=== PATIENT | female | born 1980 | race Caucasian/White ===

== ENCOUNTER 2018-03-19 10:52 | Emergency (ER) | payer MEDICAID ==
[2018-03-19 11:04] VITALS: BP 127/92
--- NOTE | 2018-03-19 11:52 | EDPHY ---
H & P Stated Complaint: FELL ON ICE 2 PAGE AGO NEVER HAD XRAYS/HAS HAD COCCYX PAIN/ SEES CHIROPRA Time Seen by Provider: 03/19/18 11:14 HPI/ROS: CHIEF COMPLAINT: Low back pain x2 weeks, acute on chronic HISTORY OF PRESENT ILLNESS: 37-year-old female history of chronic back pain for the past 2 years after she slipped on ice 2 years ago, complaining of acute exacerbation of her chronic pain for the past 2 weeks. She is being followed by a chiropractor in [place] with lower back manipulation (no cervical manipulation) and notes continued pain. Pain alleviated with 400 mg of ibuprofen. No radiculopathy. No incontinence. No retention. No saddle anesthesia. No acute trauma beyond the injury 2 years ago. No fever no chills. No abdominal pain. No fever or chills. No flu-like symptoms. No myalgias. PRIMARY CARE PROVIDER: REVIEW OF SYSTEMS: A ten point review of systems was performed and is negative with the exception of the items mentioned in the HPI PAST MEDICAL & SURGICAL HISTORY: chronic back pain since slipping the ice 2 years ago SOCIAL HISTORY:No IV drug use PHYSICAL EXAM (Prior to examination, patient consented to physical exam, hands were washed and my usual and customary physical exam procedures followed) 1) GENERAL: Well-developed, well-nourished, alert and oriented. Appears to be in no acute distress. Appears nontoxic 2) HEAD: Normocephalic, atraumatic 3) HEENT: Pupils equal, round, reactive to light bilaterally. Sclera anicteric. Nasopharynx, oropharynx, clear, no lesions. 4) NECK: Full range of motion, no meningeal signs. 5) LUNGS: Clear auscultation bilaterally, no wheezes, no rhonchi, no retractions. 6) HEART: Regular rate and rhythm, no murmur, no heave, no gallop. 7) ABDOMEN: No guarding, no rebound, no focal tenderness, negative McBurney's, negative Foley's, negative Rovsing's, negative peritoneal sign, 8) MUSCULOSKELETAL: Moving all extremities, no focal areas of tenderness, no obvious trauma. No peripheral edema or discoloration. 9) BACK: tender to palpation paraspinous lumbar muscle. No CVA tenderness, no midline vertebral tenderness, no fluctuance, no step-off, no obvious trauma, no visual or palpable abnormality. Patella, Achilles reflexes intact to bilateral strength 5/5 10) SKIN: No rash, no petechiae. 11) NEURO: Awake, alert, and oriented to person, place and time. Answers questions appropriately. There were no obvious focal neurologic abnormalities. No cerebellar dysfunction. Normal steady gait. Upper and lower extremities bilaterally with strength 5 / 5, reflexes 2+.. DIFFERENTIAL DIAGNOSIS: In no particular order, including but not limited to, fracture, sprain/strain, cauda equina, spinal infectious etiology. MEDICAL DECISION MAKING Lower index of suspicion for cauda equina, epidural abscess, epidural hematoma, lumbar myositis, diskitis, as the patient is neurologically intact in the lower extremities, has patella and Achilles reflexes intact and equal bilaterally, has no neurologic deficits, no incontinence, no retention, no midline pain, no fluctuance, afebrile, no flulike symptoms. Pain may be secondary to muscular strain, may be secondary to discogenic etiology. At this point I do not identify definitive indication for emergent MRI, however she may necessitate this on an outpatient basis. Patient given acute back pain precautions. Patient verbalizes understanding of discharge instructions. I believe them be competent decision-makers. All questions and concerns have been addressed by me. Ample opportunity for questions have been provided . The patient understands that this diagnosis is provisional and can never be 100% accurate. Usual and customary warnings were given concerning the clinical impression and all the patient's questions were answered. The patient was instructed to return to the emergency department should her symptoms worsen or return, or develop any new symptoms, otherwise to followup as directed in discharge instructions. I saw this patient independently based on established practice protocols. Care of patient under supervision of secondary supervising physician Dr Hagen . - Personal History LMP (Females 10-55): 22-28 Days Ago Current Tetanus Diphtheria and Acellular Pertussis (TDAP): No - Medical/Surgical History Hx Asthma: No Hx Chronic Respiratory Disease: No Hx Diabetes: No Hx Cardiac Disease: No Hx Renal Disease: No Hx Cirrhosis: No Hx Alcoholism: No Hx HIV/AIDS: No Hx Splenectomy or Spleen Trauma: No Other PMH: DENIES - Social History Smoking Status: Never smoked Constitutional: Initial Vital Signs Temperature (C) 36.7 C 03/19/18 11:00 Heart Rate 88 03/19/18 11:00 Respiratory Rate 18 03/19/18 11:00 Blood Pressure 127/92 H 03/19/18 11:00 O2 Sat (%) 100 03/19/18 11:00 O2 Delivery Mode Room Air Allergies/Adverse Reactions: No Known Allergies Allergy (Unverified 03/19/18 11:00) Home Medications: Medication Instructions Recorded Cyclobenzaprine [Flexeril 10 MG 10 mg PO TID #15 tab 03/19/18 (RX)] methylPREDNISolone [Medrol Dose 4 mg PO DAILY #1 ea 03/19/18 Tushar] Departure - Departure Disposition: Home, Routine, Self-Care Clinical Impression: Low back pain Qualifiers: Chronicity: chronic Back pain laterality: bilateral Sciatica presence: without sciatica Qualified Code(s): M54.5 - Low back pain; G89.29 - Other chronic pain; G89.29 - Other chronic pain Condition: Good Instructions: Acute Low Back Pain (ED) Additional Instructions: Seek medical attention if you develop new or worsening pain, if you develop bladder or bowel dysfunction, numbness around your perineum, foot drop, or any other symptoms that concern you. Referrals: Yunier Weller MD [Medical Doctor] - 2-3 days, call for appt. Prescriptions: Cyclobenzaprine [Flexeril 10 MG (RX)] 10 mg PO TID #15 tab methylPREDNISolone [Medrol Dose Tushar] 4 mg PO DAILY #1 ea
== END 2018-03-19 12:05 | disposition home or self-care (01) ==
DX: M54.5 Low back pain (principal); G89.29 Other chronic pain